=== PATIENT | female | born 1990 | race Caucasian/White ===

== ENCOUNTER 2016-10-06 22:35 | Emergency (ER) | payer OTHER ==
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
--- NOTE | 2016-10-06 23:50 | ED ORDER SUMMARY ---
..... Patient: NEIDA ALBERTO OrderSheet [facility] VisitID: [id number] [address] [place] [address] 26y, F Registration Date/Time: 10/06/2016 ORDER SHEET Weight: 99.7 kg (stated) Allergies: No Known Drug Allergy GENERAL ORDERS: MEDICATION ORDERS: IV FLUIDS: Toradol IV 30 mg (NOW) (23:13 10/06/2016 Eboni Renee) ([facility] 23:20 HSoule) (23:23 HSoule) ORDER SHEET NOTES: [Electronically signed by Blayne Kramer Dr. (23:52 10/06/2016)] [Electronically signed by Greta Mariano R.N. (02:06 10/07/2016)] [Electronically locked/signed by Greta Mariano R.N. (02:06 10/07/2016)]
--- NOTE | 2016-10-06 23:50 | ED ORDER SUMMARY ---
..... Patient: NEIDA ALBERTO OrderSheet [facility] VisitID: [id number] [address] [place] [address] 26y, F Registration Date/Time: 10/06/2016 ORDER SHEET Weight: 99.7 kg (stated) Allergies: No Known Drug Allergy GENERAL ORDERS: MEDICATION ORDERS: IV FLUIDS: Toradol IV 30 mg (NOW) (23:13 10/06/2016 Eboni Renee) ([facility] 23:20 HSoule) (23:23 HSoule) ORDER SHEET NOTES: [Electronically signed by Blayne Kramer Dr. (23:52 10/06/2016)] [Electronically signed by Greta Mariano R.N. (02:06 10/07/2016)] [Electronically locked/signed by Greta Mariano R.N. (02:06 10/07/2016)]
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
--- NOTE | 2016-10-07 02:06 | ED MED RECONCILIATION SUMMARY ---
Patient: NEIDA ALBERTO Medication Reconciliation Report [facility] VisitID: [id number] [address] [place] [address] 26y, F Registration Date/Time: 10/06/2016 Weight: 99.7 kg Height/Length: 65 in. BMI: 36.6 ALLERGIES: No Known Drug Allergy The patient's Home Medications are listed below: CONTINUE TAKING THE FOLLOWING MEDICATIONS: Omeprazole Oral PROzac Oral The source(s) of the original Home Medication information: patient The following Medications were given to the patient in the Emergency Department: Toradol [IVP] IVP 30 mg, administered: 10/06/2016 11:23:00 PM The following Medications were prescribed to the patient: Diclofenac 50 mg tablets: take 1 tablet orally every 8 hours as needed for pain or stiffness. Dispense thirty (30). No refill. -- Blayne Kramer Dr.
--- NOTE | 2016-10-07 02:06 | ED MAR SUMMARY ---
..... Medication Administration Record [facility] [address] [place] [address] Patient: NEIDA ALBERTO Visit ID: [id number] 26y, F Weight: 99.7 kg Height/Length: 65 in BMI: 36.6 ALLERGIES: No Known Drug Allergy Given 23:23 10/06/2016 Phyllis Mata, Medication Administered: TORADOL [IVP], Dose: 30 mg IVP over 1 minute(s), Site: #1 right AC. Medication Ordered: Toradol IV 30 mg (NOW).
--- NOTE | 2016-10-07 02:06 | ED MAR SUMMARY ---
..... Medication Administration Record [facility] [address] [place] [address] Patient: NEIDA ALBERTO Visit ID: [id number] 26y, F Weight: 99.7 kg Height/Length: 65 in BMI: 36.6 ALLERGIES: No Known Drug Allergy Given 23:23 10/06/2016 Phyllis Mata, Medication Administered: TORADOL [IVP], Dose: 30 mg IVP over 1 minute(s), Site: #1 right AC. Medication Ordered: Toradol IV 30 mg (NOW).
--- NOTE | 2016-10-07 02:06 | ED MED RECONCILIATION SUMMARY ---
Patient: NEIDA ALBERTO Medication Reconciliation Report [facility] VisitID: [id number] [address] [place] [address] 26y, F Registration Date/Time: 10/06/2016 Weight: 99.7 kg Height/Length: 65 in. BMI: 36.6 ALLERGIES: No Known Drug Allergy The patient's Home Medications are listed below: CONTINUE TAKING THE FOLLOWING MEDICATIONS: Omeprazole Oral PROzac Oral The source(s) of the original Home Medication information: patient The following Medications were given to the patient in the Emergency Department: Toradol [IVP] IVP 30 mg, administered: 10/06/2016 11:23:00 PM The following Medications were prescribed to the patient: Diclofenac 50 mg tablets: take 1 tablet orally every 8 hours as needed for pain or stiffness. Dispense thirty (30). No refill. -- Blayne Kramer Dr.
--- NOTE | 2016-10-07 02:06 | ED DISCHARGE INSTRUCTIONS ---
Patient: NEIDA ALBERTO General Instructions [facility] VisitID: [id number] [place] [address] 26y, F Registration Date/Time: 10/06/2016 Costochondritis INSTRUCTIONS Your Current Medications: CONTINUE TAKING THE FOLLOWING MEDICATIONS: Omeprazole Oral. PROzac Oral. Prescription Medications: Diclofenac 50 mg tablets: take 1 tablet orally every 8 hours as needed for pain or stiffness. Dispense thirty (30). No refill. Follow-up: Follow up with your doctor in about two days. Call for an appointment. Screening today revealed the patient's blood pressure to be in the pre-hypertensive range. The patient should follow up with a primary care provider for blood pressure management. ADDITIONAL INFORMATION Chest Wall Pain: Costochondritis The chest pain that you have had today is caused by Costochondritis. This condition is due to an inflammation of the cartilage joining the ribs to the breastbone. It is not caused by heart or lung problems. Although the exact cause for costochondritis is not known, it often occurs during times of emotional stress. It can be painful, but it is not dangerous. It usually disappears within one to two weeks, but may recur. Rarely, a more serious condition may cause symptoms similar to costochondritis; therefore, watch for the warning signs listed below. Home Care: If you feel that emotional stress is a cause of your condition, try to identify sources of that stress. It may not be obvious! Learn ways to deal with the stress in your life such as regular exercise, muscle relaxation, meditation, or simply taking time out for yourself. For more information about this, consult your doctor or go to a local bookstore and review books and tapes available on the subject of stress reduction. You may use acetaminophen (Tylenol) or ibuprofen (Motrin, Advil) to control pain, unless another pain medicine was prescribed. [ NOTE: If you have liver disease or ever had a stomach ulcer, talk with your doctor before using these medicines.] The use of heat (hot wet compress or heating pad) with or without local analgesic creams (Deep Heat Rub, Calvin Goel) will be helpful to reduce pain. Follow Up with your doctor as directed or sooner if you do not start to improve within the next two days. Get Prompt Medical Attention if any of the following occur: A change in the type of pain: if it feels different, becomes more severe, lasts longer, or spreads into your shoulder, arm, neck, jaw or back Shortness of breath or increased pain with breathing Weakness, dizziness, or fainting Cough with dark colored sputum (phlegm) or blood Abdominal pain Dark red or black stools Fever of 100.4F (38C) or higher, or as directed by your healthcare provider You have been given the following additional information: Chest Wall Pain, Costochondritis (Electronically signed by Blayne Kramer Dr. 10/06/2016 23:53)
== END 2016-10-06 23:56 | disposition home or self-care (01) ==
LOC: ED SRH 22:35
DX: M94.0 Chondrocostal junction syndrome [Tietze] (principal); I10 Essential (primary) hypertension; Z79.899 Other long term (current) drug therapy; F17.210 Nicotine dependence, cigarettes, uncomplicated